=== PATIENT | female | born 1995 | race Caucasian/White ===

== ENCOUNTER 2020-03-10 12:51 | Outpatient (REF) | payer OTHER, SELFPAY | END 2020-03-10 12:52 | disposition home or self-care (01) | LOC: HO.LAB 12:51 | PROVIDERS: Visit Provider Internal Medicine | DX: Z20.828 Contact with and (suspected) exposure to other viral communicable diseases (principal) | CPT/HCPCS: C9803; U0003 ==

== ENCOUNTER 2022-07-25 10:46 | Outpatient (REF) | payer BC, SELFPAY ==
[2022-07-28 08:54] LABS: HPV mRNA E6/E7 rflx Not Detected (Not Detected)
== END 2022-07-25 10:47 | disposition home or self-care (01) ==
LOC: HO.LAB 10:46
PROVIDERS: Visit Provider Internal Medicine
DX: Z01.419 Encounter for gynecological examination (general) (routine) without abnormal findings (principal); Z11.51 Encounter for screening for human papillomavirus (HPV)
CPT/HCPCS: 87624; 88142

== ENCOUNTER 2022-07-25 11:15 | Outpatient (REF) | payer BC, SELFPAY ==
[2022-07-25 14:03] LABS: MANUAL DIFF FLAG NO
[2022-07-25 14:09] LABS: Basophils Absolute Auto 0.1 X10*3/uL (0.0-0.2); Basophils Percent Auto 1.5 % (0-2); Eosinophils Percent Auto 0.5 % (0-4); Hematocrit 37.7 % (37.0-47.0); Hemoglobin 12.6 g/dl (12.0-16.0); Imm Gran Abs Auto 0.02 X10*3/uL (0.00-0.03); Imm Gran Pct Auto 0.3 % (0.0-0.4); Lymphocytes Percent Auto 32.1 % (20-40); Mean Corpuscular HGB Conc 33.4 g/dl (31.0-35.0); Mean Corpuscular Hemoglobin 30.6 pg (27.0-33.0); Mean Corpuscular Volume 91.5 fL (80.0-98.0); Mean Platelet Volume 10.4 fL (9.4-12.3); Monocytes Absolute Auto 0.6 X10*3/uL (0.1-1.2); Neutrophils Absolute Auto 3.5 x10*3/uL (2.0-8.3); Neutrophils Percent Auto 56.6 % (45-73); Platelet Count 273 X10*3/uL (160-400); Red Blood Count 4.12 X10*6/uL (4.20-5.50); Red Cell Distribution Width 13.2 % (11.0-16.0); White Blood Count 6.2 X10*3/uL (4.8-10.8)
[2022-07-25 15:22] LABS: Alanine Aminotransferase 37 U/L (0-31); Aspartate Amino Transferase 18 U/L (5-31); Cholesterol 320 mg/dL; Glucose Fasting 86 mg/dL (60-99); HDL Cholesterol 57 mg/dL; Iron 108 mcg/dL (30-160); LDL Cholesterol Calculated 211 mg/dl; Percent Iron Saturation 36 % (15-50); Total Iron Binding Capacity 299 mcg/dL (228-428); Triglycerides 260 mg/dL; Unsaturated Iron Binding 191 ug/dL
[2022-07-25 15:40] LABS: TSH reflex Free T4 1.81 uIU/mL (0.32-4.0); Vitamin D 25-OH Total 54.6 ng/mL (>30)
== END 2022-07-25 11:16 | disposition home or self-care (01) ==
LOC: HO.HMGCLDS 11:15
PROVIDERS: PCP Internal Medicine; Visit Provider Internal Medicine
DX: Z00.01 Encounter for general adult medical examination with abnormal findings (principal); Z86.2 Personal history of diseases of the blood and blood-forming organs and certain disorders involving the immune mechanism; Z83.49 Family history of other endocrine, nutritional and metabolic diseases
CPT/HCPCS: 36415; 80061; 82306; 82947; 83540; 84443; 84450; 84460; 85025

== ENCOUNTER 2022-11-20 12:09 | Outpatient (REF) | payer BC, SELFPAY ==
[2022-11-20 13:46] LABS: Basophils Absolute Auto 0.1 X10*3/uL (0.0-0.2); Basophils Percent Auto 1.1 % (0-2); Eosinophils Percent Auto 0.6 % (0-4); Hemoglobin 12.1 g/dl (12.0-16.0); Imm Gran Abs Auto 0.01 X10*3/uL (0.00-0.03); Imm Gran Pct Auto 0.2 % (0.0-0.4); Lymphocytes Absolute Auto 2.1 X10*3/uL (1.2-4.9); Lymphocytes Percent Auto 33.6 % (20-40); MANUAL DIFF FLAG NO; Mean Corpuscular HGB Conc 32.7 g/dl (31.0-35.0); Mean Corpuscular Volume 91.8 fL (80.0-98.0); Mean Platelet Volume 10.5 fL (9.4-12.3); Monocytes Absolute Auto 0.5 X10*3/uL (0.1-1.2); Monocytes Percent Auto 8.3 % (2-11); Neutrophils Absolute Auto 3.5 x10*3/uL (2.0-8.3); Neutrophils Percent Auto 56.2 % (45-73); Platelet Count 234 X10*3/uL (160-400); Red Blood Count 4.03 X10*6/uL (4.20-5.50); White Blood Count 6.3 X10*3/uL (4.8-10.8)
[2022-11-21 04:31] LABS: HBS Num1 0.09 mIU/mL (0-7.99); ~Hepatitis B Surface Antibody NONREACTIVE (Nonreactive)
[2022-11-21 10:09] LABS: Rubella IgG Antibody 1.62 Index; Rubeola IgG (Measles) <13.50 AU/mL; Varicella IgG Antibody <135.00 index
[2022-11-22 15:47] LABS: TS Negative Control Passed; TS Panel A 0; TS Panel B 0; TS Positive Control Passed; TSpotTB Negative (Negative)
== END 2022-11-20 12:10 | disposition home or self-care (01) ==
LOC: HO.HMGCLDS 12:09
PROVIDERS: PCP Internal Medicine; Visit Provider Internal Medicine
DX: Z01.84 Encounter for antibody response examination (principal); Z11.1 Encounter for screening for respiratory tuberculosis; E78.2 Mixed hyperlipidemia; Z86.2 Personal history of diseases of the blood and blood-forming organs and certain disorders involving the immune mechanism
CPT/HCPCS: 36415; 85025; 86481; 86706; 86735; 86762; 86765; 86787

== ENCOUNTER 2022-12-04 07:48 | Outpatient (REF) | payer BC, SELFPAY ==
[2022-12-04 14:01] LABS: Cholesterol 210 mg/dL; HDL Cholesterol 49 mg/dL; LDL Cholesterol Calculated 124 mg/dl; Triglycerides 188 mg/dL
== END 2022-12-04 07:49 | disposition home or self-care (01) ==
LOC: HO.HMGCLDS 07:48
PROVIDERS: PCP Internal Medicine; Visit Provider Internal Medicine
DX: E78.2 Mixed hyperlipidemia (principal); Z86.2 Personal history of diseases of the blood and blood-forming organs and certain disorders involving the immune mechanism
CPT/HCPCS: 36415; 80061

== ENCOUNTER 2022-12-06 15:20 | Outpatient (AMB) | payer BC, SELFPAY ==
--- NOTE | 2022-12-06 15:38 | A.OFFPC_ITS ---
<Statement entered by Jyoti Cooper MD - 08/26/24 15:20> This note has been administratively?closed. Vital Signs 12/06/22 15:39 Height 5 ft 6 in Weight 143 lb BMI 23.1 BP 110/68 Blood Pressure Location Lt brachial Position Sitting Pulse 70 Pulse Source Pulse Oximeter Pulse Oximetry (%) 100 Oxygen Delivery Method Room Air Intake Visit Reasons: 4 month follow up Intake Note: Patient here to review lab results. Allergies No Known Allergies Allergy (Unverified 12/06/22 16:01) Medication List - Last Reconciled 12/06/22 by Jyoti Cooper MD cholecalciferol (vitamin D3) 25 mcg PO DAILY ferrous sulfate 325 mg PO DAILY Tobacco use date assessed: 08/01/22 [facility] History Family history of thyroid disease Hx of iron deficiency anemia Hx of renal calculi Mixed dyslipidemia Surgical History History of extraction of renal calculus Family History Mother Hypercholesterolemia Maternal Uncle Hypercholesterolemia Coronary artery disease Social History Housing: House Patient Tobacco Use Status: Never used Tobacco e-Cigarette/Vaping Use: Never Used service: No Current occupational status: employed Cognitive needs: No Hearing needs: No Vision needs: No Questionnaire Thrive Questionnaire Date Thrive assessed: 07/25/22 YAMILEX-7 AMB Questionnaire YAMILEX-7 Date YAMILEX - 7 assessed: 07/25/22 Source: Developed by Drs. Jean Das, Cindy Garcia, Brain Gotti and colleagues, with an educational ricki from [email or web address]. Physical exam (Primary Care) Vital Signs: Last Vital Signs Pulse 70 12/06/22 15:39 BP 110/68 12/06/22 15:39 Pulse Ox 100 12/06/22 15:39 Oxygen Delivery Method Room Air 12/06/22 15:39 BMI result Body Mass Index 23.1 Tobacco/Smoking Status: Tobacco use Status Tobacco use date assessed 08/01/22 12/06/22 15:41 Patient Tobacco Use Status Never used Tobacco 12/06/22 15:41 e-Cigarette/Vaping Use Never Used 12/06/22 15:41 Thrive Assessment: Date of Thrive Assessment Date Thrive assessed 07/25/22 12/06/22 15:41 Results Reviewed Results Reviewed: RUN: 12/06/22 1553 PAGE 1 [facility] [address] [place] [phone] Gardener Florist: Gorge Armenta M.D. Specimen Inquiry Name: Luz Moreno Age/Sex: 27/F : 1995 Unit#: [id number] Attend Dr: Jyoti Cooper MD Re11/20/22 Status: DEP REF Location: [facility] Disch: SPEC : [id number] ERIKA: 11/20/22 STATUS: COMP REQ : [id number] RECD: 11/20/[address]: Jyoti Cooper MD COMP: 11/20/22 ENTERED: 11/20/[address] [facility] [address]: ORDERED: CBC Auto Diff Test Result Flag Reference Site WBC 6.3 4.8-10.8 X10*3/uL RBC 4.03 L 4.20-5.50 X10*6/uL HGB 12.1 12.0-16.0 g/dl HCT 37.0 37.0-47.0 % MCV 91.8 80.0-98.0 fL MCH 30.0 27.0-33.0 pg MCHC 32.7 31.0-35.0 g/dl RDW 13.0 11.0-16.0 % PLT 234 160-400 X10*3/uL Assessment and Plan Assessment & Plan (1) Mixed dyslipidemia: Code(s): E78.2 - Mixed hyperlipidemia (2) Hx of iron deficiency anemia: Code(s): Z86.2 - Personal history of diseases of the blood and blood-forming organs and certain disorders involving the immune mechanism Review Flu Vaccine not done: patient reason (Patient declined) Coding Level of Care Code Est Pt Level 3 (09288) Diagnoses Mixed dyslipidemia E78.2 Hx of iron deficiency anemia Z86.2
[2022-12-06 15:39] VITALS: BP 110/68; PULSE 70; O2SAT 100; BMI 23.1
== END 2022-12-06 16:24 | disposition home or self-care (01) ==
LOC: HO.HMGC 15:20
PROVIDERS: PCP Internal Medicine; Visit Provider Internal Medicine
DX: E78.2 Mixed hyperlipidemia (principal); Z86.2 Personal history of diseases of the blood and blood-forming organs and certain disorders involving the immune mechanism
CPT/HCPCS: 99499

== ENCOUNTER 2024-09-14 21:49 | Emergency (ER) | payer OTHER, SELFPAY ==
--- NOTE | ~2024-09-14 | XR_ITS ---
CLINICAL HISTORY: chest pain 1 view chest x-ray Comparison: None available Findings: No consolidation, pneumothorax, or pleural effusion. Cardiac silhouette is at the upper limits of normal. No acute fracture, by one view chest x-ray. IMPRESSION: No consolidation. This document has been electronically signed by: Zana John MD on 09/14/2024 23:11:25
--- NOTE | ~2024-09-14 | CT_ITS ---
CLINICAL HISTORY: Sudden onset of chest pain and shortness o breath CT angiography chest with contrast. With MIP MPR Postprocessing. Comparison: Chest x-ray from 09/14/2024 Findings: No central pulmonary embolism. No aortic dissection accounting for artifacts. Heart size at the upper limits of normal. No consolidation, pneumothorax, or pleural effusion. Minimal atelectasis with motion artifacts. Mild residual thymic tissue mild mediastinal fluid. Nonenlarged mediastinal lymphadenopathy. No acute osseous abnormality. Mild/borderline splenomegaly in the partially imaged abdomen. IMPRESSION: 1. No central pulmonary embolism. 2. Mild bibasilar atelectasis. This document has been electronically signed by: Zana John MD on 09/15/2024 01:15:18
--- NOTE | 2024-09-14 21:51 | ECG_ITS ---
Test Reason : CHEST PAIN Blood Pressure : */* mmHG Vent. Rate : 70 BPM Atrial Rate : 70 BPM P-R Int : 156 ms QRS Dur : 82 ms QT Int : 396 ms P-R-T Axes : 47 57 12 degrees QTcB Int : 427 ms Normal sinus rhythm Normal ECG No previous ECGs available Referred By: Generic ED Physician Electronically Signed By: Tyler Bloom
[2024-09-14 22:00] VITALS: BP 120/67; PULSE 63; RESP 16; TEMP 36.2; O2SAT 99; BMI 24.2
[2024-09-14 22:17] LABS: MANUAL DIFF FLAG NO
[2024-09-14 22:18] LABS: Basophils Percent Auto 0.4 % (0-2); Eosinophils Absolute Auto 0.1 X10*3/uL (0.0-0.4); Hematocrit 34.8 % (37.0-47.0); Hemoglobin 11.7 g/dl (12.0-16.0); Imm Gran Abs Auto 0.02 X10*3/uL (0.00-0.03); Imm Gran Pct Auto 0.3 % (0.0-0.4); Lymphocytes Absolute Auto 2.1 X10*3/uL (1.2-4.9); Lymphocytes Percent Auto 29.2 % (20-40); Mean Corpuscular HGB Conc 33.6 g/dl (31.0-35.0); Mean Corpuscular Volume 89.2 fL (80.0-98.0); Mean Platelet Volume 9.4 fL (9.4-12.3); Monocytes Absolute Auto 0.8 X10*3/uL (0.1-1.2); Monocytes Percent Auto 10.6 % (2-11); Neutrophils Absolute Auto 4.1 x10*3/uL (2.0-8.3); Neutrophils Percent Auto 58.5 % (45-73); Platelet Count 242 X10*3/uL (160-400); White Blood Count 7.1 X10*3/uL (4.8-10.8)
[2024-09-14 22:33] LABS: Alanine Aminotransferase 52 U/L (0-31); Albumin Level 4.5 g/dL (3.5-5.0); Alkaline Phosphatase 137 U/L (39-117); Anion Gap 13 (12-20); Aspartate Amino Transferase 77 U/L (5-31); Bilirubin Total 1.6 mg/dL (0.0-1.0); Blood Urea Nitrogen 20 mg/dL (9-16); Calcium 9.5 mg/dL (8.4-10.2); Carbon Dioxide 25 mmol/L (22-29); Chloride 109 mmol/L (96-108); Creatinine Clr Calc Pharmacy 129.6; Estimated Glomerular Filt Rate > 60; Glucose Random 82 mg/dL (60-115); Sodium 143 mmol/L (135-145); Total Protein 6.8 g/dL (6.5-8.0)
[2024-09-14 22:41] LABS: Troponin-I High Sensitivity < 2.7 ng/L (<3.5-17.0)
[2024-09-14 22:45] LABS: Prothrombin Time 11.1 SEC (10.9-12.4)
--- NOTE | 2024-09-14 23:56 | ED.CHESTPAIN ---
HPI - Chest Pain General Chief Complaint: Chest Pain Stated Complaint: cp, sob Time Seen by Provider: 09/14/24 23:53 Source: patient Mode of arrival: ambulatory Limitations: no limitations History of Present Illness ED Provider: HPI narrative: Patient 29 years old 8 weeks normal vaginal delivery comes here for left-sided chest tightness and shortness a breath prior to arrival on arrival patient is saturating 98% at room air no palpitation no history of anxiety or depression patient never had similar episode in the past patient denied any in leg pain no family history of coronary artery disease/PE Related Data Allergies Allergy/AdvReac Type Severity Reaction Status Date / Time No Known Allergies Allergy Verified 09/14/24 22:02 Review of Systems Review of Systems: Yes all other systems are reviewed and are negative [facility] Social History Social History Alcohol intake: never Physical Exam Vital Signs: Vital Signs: Last Vital Signs Temp 97.4 F 09/15/24 02:26 Pulse 63 09/15/24 02:26 Resp 16 09/15/24 02:26 BP 111/63 09/15/24 02:26 Pulse Ox 98 09/15/24 02:26 O2 Del Method Room Air 09/15/24 02:26 BMI result Body Mass Index 24.2 Appearance: Alert. Oriented X3. No acute distress. Eyes: No pallor or icterus ENT: Pharynx normal. Oral Mucosa moist Neck: Normal inspection. Neck supple. CVS: Normal heart rate and rhythm. Pulses normal. Respiratory: No respiratory distress. Equal air entry bilateral, no wheezing/rales/rhonchi Abdomen: Soft and nontender. Bowel sounds are present, no mass palpable, no CVA tenderness Skin: Skin warm and dry. Normal skin color. Normal skin turgor. Extremities: No lower extremity edema. No calf tenderness Neuro: Oriented X 3. No motor deficit. Medications Administered Discontinued Medications Generic Name Dose Route Start Last Admin Trade Name Freq PRN Reason Stop Dose Admin Iohexol 65 ml 09/15/24 00:16 09/15/24 00:17 Iohexol 350 Mg/Ml 100 Ml Infus..Btl IV 09/15/24 00:17 65 ml ONCE ONE Administration Medical Decision Making Medical Decision Making [facility] Narrative: Patient has atypical chest pain and shortness a breath CTA chest was done to rule out PE which was negative cardiac enzymes negative heart score of 0 no acute EKG changes will discharge patient home patient is saturating 99% after ambulation no chest pain at this time Differential Diagnosis Differential Diagnoses: The differential diagnosis associated with the presentation includes Musculoskeletal chest pain/PE/pneumonia/pleurisy Admission/Observation Consideration of admission/observation: Escalation of care including admission/observation considered Lab Data MDM Lab Attestation statement: I reviewed the patient's lab results. 09/14/24 22:15 09/14/24 22:15 Labs: Lab Results 09/14/24 Range/Units 22:15 WBC 7.1 (4.8-10.8) X10*3/uL RBC 3.90 L (4.20-5.50) X10*6/uL Hgb 11.7 L (12.0-16.0) g/dl Hct 34.8 L (37.0-47.0) % MCV 89.2 (80.0-98.0) fL MCH 30.0 (27.0-33.0) pg MCHC 33.6 (31.0-35.0) g/dl RDW 13.0 (11.0-16.0) % Plt Count 242 (160-400) X10*3/uL MPV 9.4 (9.4-12.3) fL Immature Gran % (Auto) 0.3 (0.0-0.4) % Neut % (Auto) 58.5 (45-73) % Lymph % (Auto) 29.2 (20-40) % [place] % (Auto) 10.6 (2-11) % Eos % (Auto) 1.0 (0-4) % Baso % (Auto) 0.4 (0-2) % Lymph # (Auto) 2.1 (1.2-4.9) X10*3/uL [place] # (Auto) 0.8 (0.1-1.2) X10*3/uL Eos # (Auto) 0.1 (0.0-0.4) X10*3/uL Baso # (Auto) 0.0 (0.0-0.2) X10*3/uL Abs Immat Gran (auto) 0.02 (0.00-0.03) X10*3/uL Absolute Neuts (auto) 4.1 (2.0-8.3) x10*3/uL Absolute Nucleated RBC 0.000 (0.0-0.012) X10*3/uL Nucleated RBC % (auto) 0.0 (0.0-0.2) /100WBC PT 11.1 (10.9-12.4) SEC INR 1.0 (0.9-1.1) Sodium 143 (135-145) mmol/L Potassium 4.0 (3.3-5.1) mmol/L Chloride 109 H (96-108) mmol/L Carbon Dioxide 25 (22-29) mmol/L Anion Gap 13 (12-20) BUN 20 H (9-16) mg/dL Creatinine 0.61 (0.5-1.4) mg/dL Estim Creat Clear Calc 129.6 Estimated GFR > 60 Random Glucose 82 (60-115) mg/dL Calcium 9.5 (8.4-10.2) mg/dL Total Bilirubin 1.6 H (0.0-1.0) mg/dL AST 77 H (5-31) U/L ALT 52 H (0-31) U/L Alkaline Phosphatase 137 H (39-117) U/L Troponin I High Sens < 2.7 (<3.5-17.0) ng/L Total Protein 6.8 (6.5-8.0) g/dL Albumin 4.5 (3.5-5.0) g/dL Independent Interpretation I performed an independent interpretation of an: EKG Interpretation: Normal sinus rhythm ventricular rate of 70 beats per minute normal intervals normal axis no acute STT wave changes no acute ischemia Scores Heart Score History: -0- slightly suspicious ECG: -0- normal Age: -0- < or = 45 Risk factory: -0- no risk factors known Troponin: -0- < or = normal limit Score: 0 Risk: 1.7% Discharge Plan Discharge Clinical Impression: Atypical chest pain Patient Disposition: Home, Self-Care Instructions: Chest Wall Pain (ED) Additional Instructions: Cause of pain is not clear likely musculoskeletal CT scan of the chest is negative for blood clot Take Tylenol/Motrin for pain if any Follow up with your PCP Interventions: ED Discharge Assessment Last Done: 09/15/24 02:26 Discharge Date/Time: 09/15/24 02:26 Print Language: Azeri
--- NOTE | 2024-09-15 00:14 | PC.NURSE ---
IV #20 L_AC, pt went to CT.
[2024-09-15] MEDS: iohexoL 350 MG/ML 100 ML INFUS..BTL 65 ML IV (00:17)
[2024-09-15 02:00] VITALS: BP 111/63; PULSE 63; RESP 16; TEMP 36.3; O2SAT 98
[2024-09-15 02:26] VITALS: BP 111/63; PULSE 63; RESP 16; TEMP 36.3; O2SAT 98
== END 2024-09-15 02:26 | disposition home or self-care (01) ==
PROVIDERS: Emergency Provider Internal Medicine; PCP Nurse Practitioner Family
DX: R07.89 Other chest pain (principal); R06.02 Shortness of breath
CPT/HCPCS: 36415; 71045; 71275; 80053; 84484; 85025; 85610; 93005; 99284; 99285; Q9967

== ENCOUNTER → 2024-09-14 21:51 | Outpatient (BNV) | payer OTHER, SELFPAY | PROVIDERS: Emergency Provider Internal Medicine; PCP Nurse Practitioner Family; Visit Provider Internal Medicine Cardiovascular Disease | DX: R07.9 Chest pain, unspecified (principal) | CPT/HCPCS: 93010 ==

== ENCOUNTER → 2024-09-14 22:14 | Outpatient (BNV) | payer OTHER, SELFPAY | PROVIDERS: Emergency Provider Internal Medicine; PCP Nurse Practitioner Family; Visit Provider Radiology Neuroradiology | DX: R07.9 Chest pain, unspecified (principal) | CPT/HCPCS: 71045 ==

== ENCOUNTER → 2024-09-15 | Outpatient (BNV) | payer OTHER, SELFPAY | PROVIDERS: Emergency Provider Internal Medicine; PCP Nurse Practitioner Family; Visit Provider Radiology Neuroradiology | DX: R07.9 Chest pain, unspecified (principal); R06.02 Shortness of breath | CPT/HCPCS: 71275 ==

== ENCOUNTER 2024-10-16 10:55 | Outpatient (AMB) | payer OTHER, SELFPAY ==
--- NOTE | 2024-10-16 10:57 | MHC.PC.OV ---
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 screening should start at age 21 years unless your provider advises otherwise. After the first test: Women ages 21 through 29 should have a Pap test every 3 years. Exoprts do not agree on whether HPV testing is recommended for this age group. Women ages 30 through 65 should be screened with either a Pap test every 3 years or the HPV test every 5 years or both tests every 5 years (called cotesting ). Women who have been treated for precancer (cervical dysplasia) should continue to have Pap tests for 20 years after treatment or until age 65, whichever is longer. If you have had your uterus and cervix removed (total hysterectomy), and you have not been diagnosed with cervical cancer or precancer (high grade cervical neoplasia), you do not need cervical cancer screening. CHOLESTEROL SCREENING Cholesterol screening should begin at: Age 45 for women with no known risk factors for coronary heart disease Age 20 for women with known risk factors for coronary heart disease Repeat cholesterol screening should take place: Every 5 years for women with normal cholesterol levels More often if changes occur in lifestyle (including weight gain and diet) More often if you have diabetes, heart disease, kidney problems, or certain other conditions DIABETES SCREENING You should be screened for diabetes starting at age 35 and then repeated every 3 years if you have no risk factors for diabetes. Screening may need to start earlier and be repeated more often if you have other risk factors for diabetes, such as: You have a first degree relative with diabetes. You are overweight or have obesity. You have high blood pressure, prediabetes, or a history of heart disease. Screening for diabetes should be done if you are planning to become and you are overweight and have other risk factors such as high blood pressure. DENTAL EXAM Go to the dentist once or twice every year for an exam and cleaning. Your dentist will evaluate if you need more frequent visits. EYE EXAM Have an eye exam every 5 to 10 years before age 40. If you have vision problems, have an eye exam every 2 years or more often if recommended by your provider. You should have an eye exam that includes an examination of your retina (back of your eye) at least every year if you have diabetes. IMMUNIZATIONS Commonly needed vaccines include: Flu shot: get one every year. COVID-19 vaccine: ask your provider what is best for you. Tetanus-diphtheria and acellular pertussis (Tdap) vaccine: have one at or after age 19 as one of your tetanus-diphtheria vaccines if you did not receive it as an adolescent. Tetanus-diphtheria: have a booster (or Tdap) every 10 years. Varicella vaccine: receive 2 doses if you never had chickenpox or the varicella vaccine. Hepatitis B vaccine: receive 2, 3, or 4 doses, depending on your exact circumstances. Measles, mumps, and rubella (MMR) vaccine: receive 1 to 2 doses if you are not already immune to MMR. Your provider can tell you if you are immune. Ask your provider about the human papillomavirus (HPV) vaccine if: You have not received the HPV vaccine in the past You have not completed the full vaccine series (you should catch up on this shot) Ask your provider if you should receive other immunizations if you have certain health problems that increase your risk for some diseases such as pneumonia. INFECTIOUS DISEASE SCREENING Women who are sexually active should be screened for chlamydia and gonorrhea up until age 25. Women 25 years and older should be screened for chlamydia and gonorrhea if at high risk. Screening for hepatitis C: All adults ages 18 to 79 should get a one-time test for hepatitis C. people should be screened at every . Screening for human immunodeficiency virus (HIV): All people ages 15 to 65 should get a one-time test for HIV. Depending on your lifestyle and medical history, you may also need to be screened for infections such as syphilis and HIV, as well as other infections. PHYSICAL EXAM All adults should visit their provider from time to time, even if they are healthy. The purpose of these visits is to: Screen for disease Assess your risk of future medical problems Encourage a healthy lifestyle Update your vaccinations and other preventive care services Maintain a relationship with a provider in case of an illness Your height, weight, and BMI should be checked at every exam. During your exam, your provider may ask you about: Depression and anxiety Diet and exercise Alcohol and tobacco use Safety issues, such as using seat belts, smoke detectors, and intimate partner violence Your medicines and risk for interactions SKIN SELF-EXAM Your provider may check your skin for signs of skin cancer, especially if you're at high risk, such as if you: Have had skin cancer before Have close relatives with skin cancer Have a weakened immune system OTHER SCREENING Talk with your provider about colon cancer screening if you have a strong family history of colon cancer or polyps, or if you have had inflammatory bowel disease or polyps yourself. Routine bone density screening of women under 40 is not recommended.
[2024-10-16 11:07] VITALS: BP 99/66; PULSE 72; RESP 12; TEMP 36.3; O2SAT 99; BMI 23.8
== END 2024-10-16 11:33 | disposition home or self-care (01) ==
LOC: HO.HMCFM 10:55
PROVIDERS: PCP Nurse Practitioner Family; Visit Provider Nurse Practitioner Family
DX: Z00.00 Encounter for general adult medical examination without abnormal findings (principal); E78.2 Mixed hyperlipidemia; R79.89 Other specified abnormal findings of blood chemistry; Z09 Encounter for follow-up examination after completed treatment for conditions other than malignant neoplasm; Z83.49 Family history of other endocrine, nutritional and metabolic diseases; Z86.2 Personal history of diseases of the blood and blood-forming organs and certain disorders involving the immune mechanism; Z82.49 Family history of ischemic heart disease and other diseases of the circulatory system; Z80.3 Family history of malignant neoplasm of breast; Z01.818 Encounter for other preprocedural examination

== ENCOUNTER → 2024-10-16 10:55 | Outpatient (BNVA) | payer OTHER, SELFPAY | PROVIDERS: PCP Nurse Practitioner Family; Visit Provider Nurse Practitioner Family | DX: Z01.818 Encounter for other preprocedural examination (principal); R79.89 Other specified abnormal findings of blood chemistry; E78.2 Mixed hyperlipidemia; Z83.49 Family history of other endocrine, nutritional and metabolic diseases; Z86.2 Personal history of diseases of the blood and blood-forming organs and certain disorders involving the immune mechanism; Z82.49 Family history of ischemic heart disease and other diseases of the circulatory system; Z80.3 Family history of malignant neoplasm of breast; Z87.442 Personal history of urinary calculi; Z76.89 Persons encountering health services in other specified circumstances | CPT/HCPCS: 96127 ==

== ENCOUNTER 2024-10-30 06:01 | Emergency (ER) | payer OTHER, SELFPAY ==
--- NOTE | ~2024-10-30 | US_ITS ---
EXAMINATION: US ABDOMEN LIMITED CLINICAL INFORMATION: Right upper quadrant abdominal pain. COMPARISON: None available. Correlation made with CT angiogram chest 09/15/[address] abdomen pelvis 07/05/2016. TECHNIQUE: Real-time grayscale and color Doppler imaging of the gallbladder and bile ducts performed. FINDINGS: Limited imaging of the liver demonstrates no abnormality. GALLBLADDER: There are small layering shadowing gallstones present. The gallbladder is normal in appearance otherwise without wall thickening or pericholecystic fluid collection. Negative sonographic Melchor's sign. COMMON BILE DUCT: Normal in caliber measuring 0.5 cm in diameter. FREE FLUID: None. US/US abdomen limited IMPRESSION: 1. Cholelithiasis without ultrasound evidence of acute cholecystitis. 2. No biliary dilatation present. Electronically signed by: Amadou Mayfield MD 10/30/2024 09:17 AM EDT
--- NOTE | ~2024-10-30 | MR_ITS ---
EXAMINATION: MRCP. CLINICAL INFORMATION: Elevated LFTs. Jaundice. TECHNIQUE: Axial and coronal T2 fat-sat haste sequences. Axial and coronal T2 haste sequences. Coronal oblique T2 single shot. MRCP radial T2 fat-sat. 3-D space MRCP triggered. Axial in and out 3-D phase sequences. COMPARISON: Ultrasound and limited dated October 30, 2024. FINDINGS: Patient's motion artifact. Multiple, layering, less than 6 mm hypointense T2 signal lesion seen in the gallbladder lumen. There is a trace of pericholecystic fluid. The gallbladder wall measures 2 mm. The common bile duct measures 3 mm. No gross intraluminal signal abnormality. No intrahepatic biliary ductal dilatation. Liver measures 18 cm. The flow-void signal within the main portal veins and hepatic veins and intrahepatic portion of the IVC are patent. No peripancreatic fluid collections. No main pancreatic ductal dilatation. Spleen measures 9 cm. No nodular lesions in the adrenal glands. No hydronephrosis in either kidney. Subcentimeter cyst in the lower pole right kidney. No ascites. No intestinal obstruction pattern. No aneurysm or gross dissection in the included abdominal aorta. MR/MR MRCP IMPRESSION: Cholelithiasis. Trace of pericholecystic fluid. No gross choledocholithiasis. Hepatomegaly, mild. No ascites. Subcentimeter cyst right kidney. Electronically signed by: Chidi Prado MD 10/30/2024 02:02 PM EDT
[2024-10-30 06:14] VITALS: BP 102/64; PULSE 80; RESP 16; TEMP 36.2; O2SAT 97; BMI 23.4
[2024-10-30 06:52] LABS: MANUAL DIFF FLAG NO
[2024-10-30 06:55] LABS: Hematocrit 35.1 % (37.0-47.0); Hemoglobin 11.9 g/dl (12.0-16.0); Imm Gran Abs Auto 0.04 X10*3/uL (0.00-0.03); Imm Gran Pct Auto 0.6 % (0.0-0.4); Lymphocytes Absolute Auto 1.6 X10*3/uL (1.2-4.9); Mean Corpuscular HGB Conc 33.9 g/dl (31.0-35.0); Mean Corpuscular Hemoglobin 30.2 pg (27.0-33.0); Mean Corpuscular Volume 89.1 fL (80.0-98.0); NRBC Abs Auto 0.000 X10*3/uL (0.0-0.012); NRBC Pct Auto 0.0 /100WBC (0.0-0.2); Platelet Count 223 X10*3/uL (160-400); Red Blood Count 3.94 X10*6/uL (4.20-5.50); White Blood Count 6.4 X10*3/uL (4.8-10.8)
--- NOTE | 2024-10-30 07:04 | ED.ABDPAIN ---
HPI - Abdominal Pain General Chief Complaint: Abdominal Pain Stated Complaint: gall bladder attack Time Seen by Provider: 10/30/24 07:03 Source: patient, family and old records reviewed Mode of arrival: ambulatory Limitations: no limitations History of Present Illness ED Provider: YANET MULLINS narrative: 29 yo female with PMH of renal colic who has been dealing with gallbladder issues on and off and has scheduled elective lap remy with [facility] on Dec 13. She is not on medications or low fat diet. She notes for the past week she has nausea and worsening pain. No fevers, vomiting, diarrhea. She ate steak and corn last night then about 4am pain got severe again. She notes pain is RUQ and epigastric area. MD elicited complaint: abdominal pain Pertinent past history: other Onset (ago): week(s) (1) Pain Consistency: intermittent Location: epigastric and RUQ Severity: severe Quality: stabbing and aching Radiation: none Migration to: no migration Exacerbating factors: eating Relieving factors: nothing Context: other Associated symptoms: nausea Related Data Home Medications ?Medication ?Instructions ?Recorded ?Confirmed vitamins no.119-iron tab PO 10/16/24 10/16/24 fumarate 29 mg-folic acid 1 mg tablet Previous Rx's ?Medication ?Instructions ?Recorded ibuprofen 600 mg tablet 600 mg PO Q6H PRN pain #30 tabs 10/30/24 ondansetron 4 mg disintegrating 4 mg PO Q8H PRN nausea and 10/30/24 tablet vomiting #20 tabs Allergies Allergy/AdvReac Type Severity Reaction Status Date / Time No Known Allergies Allergy Verified 10/30/24 06:15 Review of Systems Review of Systems Constitutional : No Weight loss, No Fever, No Chills ENT/Mouth : No sore throat, No Rhinorrhea Eyes: No Swelling, No Redness Cardiovascular : No Chest Pain, No SOB, NoEdema Respiratory : No Cough, No Sputum, No Wheezing Gastrointestinal : Positive Nausea, no Vomiting, no Diarrhea, positive abdominal Pain, No Hematochezia, No Melena Genitourinary : No Dysuria, No Urinary Frequency, No Hematuria, No Urgency Musculoskeletal : No joint pain, No Myalgias, No Joint Swelling Skin : No Skin Lesions, No rash All other systems reviewed and are negative. [facility] Past Medical History Attestation statement: The following information was validated with the patient. Source: old records reviewed Medical History Kidney stone (~2019) Mixed dyslipidemia Hx of renal calculi Family history of thyroid disease Hx of iron deficiency anemia Surgical History History of extraction of renal calculus Family History Family History (Updated 10/16/24 @ 11:12 by Se Turcios MA) Mother Hypercholesterolemia HTN (hypertension) Maternal Uncle Hypercholesterolemia Coronary artery disease Maternal Grandmother Breast cancer Social History Social History Household Members: Significant Other and Children Housing: House Are you a primary wound care specialist to a significant other at home: Yes Do you presently have visiting nurse or other home services: No Alcohol intake: never Patient Tobacco Use Status: Never used Tobacco e-Cigarette/Vaping Use: Never Used Second Hand Smoke Exposure: No Advance Directives: No Do you have a plan to hurt others: No Plan service: No Current occupational status: employed Current occupation: homehealth aide Cognitive needs: No Hearing needs: No Vision needs: No Physical Exam ED Vital Signs: Vital Signs - 24 hr 10/30/24 06:14 10/30/24 09:27 10/30/24 12:24 Temperature 97.1 F 97.1 F 97.8 F Pulse Rate 80 63 63 Respiratory Rate 16 14 18 Blood Pressure 102/64 94/53 L 92/48 L Pulse Oximetry 97 99 98 Oxygen Delivery Method Room Air Room Air Room Air 10/30/24 14:19 Temperature Pulse Rate 56 Respiratory Rate 18 Blood Pressure 96/60 Pulse Oximetry 99 Oxygen Delivery Method Room Air BMI result Body Mass Index 23.4 Appearance: Alert. Oriented X3. No acute distress. Eyes: Pupils equal, round and reactive to light. ENT: Pharynx normal. Neck: Normal inspection. Neck supple. CVS: Normal heart rate and rhythm. Pulses normal. Respiratory: No respiratory distress. Breath sounds normal. Abdomen: Soft and moderate RUQ and epigastric ttp, no rebound or guarding Skin: Skin warm and dry. Normal skin color. Normal skin turgor. Extremities: No lower extremity edema. No calf ttp Neuro: Oriented X 3. No motor deficit. No sensory deficit. CN2-12 intact Course Course Course Narrative: repeat message to surgery after MRI done 220pm Medical Decision Making Medical Decision Making MDM Narrative: 29 yo female with PMH of renal colic here with recurrent biliary colic last night ate steak and corn worsening pain after 1 week now with nausea and more pain at 4am. At this time labs, US, IVF and IV toradol ordered. She does have elective surgery but not for almost 5 weeks. Differential Diagnosis Differential Diagnoses: The differential diagnosis associated with the presentation includes gastritis, PUD, biliary colic Admission/Observation Consideration of admission/observation: Escalation of care including admission/observation considered labs around baseline, US no RUQ pain and no cholecystitis. plan to DC low fat diet, ibuprofen and follow up early next week for surgery 959am patient was seen by surgical team - plan now obtain MRCP prior to DC MRCP stable follow up as outpatient Consult Healthcare Provider Management of the patient was discussed with: [employer] Jig As[employer]er (Dr. Hernandez) Lab Data [facility] Lab Attestation statement: I reviewed the patient's lab results. 10/30/24 06:44 10/30/24 06:44 Labs: Lab Results 10/30/24 10/30/24 Range/Units 06:44 08:57 WBC 6.4 (4.8-10.8) X10*3/uL RBC 3.94 L (4.20-5.50) X10*6/uL Hgb 11.9 L (12.0-16.0) g/dl Hct 35.1 L (37.0-47.0) % MCV 89.1 (80.0-98.0) fL MCH 30.2 (27.0-33.0) pg MCHC 33.9 (31.0-35.0) g/dl RDW 13.2 (11.0-16.0) % Plt Count 223 (160-400) X10*3/uL MPV 9.7 (9.4-12.3) fL Immature Gran % (Auto) 0.6 H (0.0-0.4) % Neut % (Auto) 60.1 (45-73) % Lymph % (Auto) 24.4 (20-40) % [place] % (Auto) 12.7 H (2-11) % Eos % (Auto) 1.6 (0-4) % Baso % (Auto) 0.6 (0-2) % Lymph # (Auto) 1.6 (1.2-4.9) X10*3/uL [place] # (Auto) 0.8 (0.1-1.2) X10*3/uL Eos # (Auto) 0.1 (0.0-0.4) X10*3/uL Baso # (Auto) 0.0 (0.0-0.2) X10*3/uL Abs Immat Gran (auto) 0.04 H (0.00-0.03) X10*3/uL Absolute Neuts (auto) 3.9 (2.0-8.3) x10*3/uL Absolute Nucleated RBC 0.000 (0.0-0.012) X10*3/uL Nucleated RBC % (auto) 0.0 (0.0-0.2) /100WBC Sodium 139 (135-145) mmol/L Potassium 3.8 (3.3-5.1) mmol/L Chloride 105 (96-108) mmol/L Carbon Dioxide 26 (22-29) mmol/L Anion Gap 12 (12-20) BUN 26 H (9-16) mg/dL Creatinine 0.61 (0.5-1.4) mg/dL Estim Creat Clear Calc 129.6 Estimated GFR > 60 Random Glucose 83 (60-115) mg/dL Calcium 9.5 (8.4-10.2) mg/dL Total Bilirubin 1.3 H (0.0-1.0) mg/dL Direct Bilirubin 0.4 (0.0-0.5) mg/dL AST 107 H (5-31) U/L ALT 75 H (0-31) U/L Alkaline Phosphatase 172 H (39-117) U/L Total Protein 6.8 (6.5-8.0) g/dL Albumin 4.5 (3.5-5.0) g/dL Lipase 50 (8-78) U/L Urine Color Yellow Urine Appearance Clear Urine pH 6.5 (5.0-9.0) Ur Specific [place] 1.020 (1.005-1.025) Urine Protein Negative (Neg-Trace) mg/dL Urine Glucose (UA) Negative (Negative) mg/dL Urine Ketones Negative (Negative) mg/dL Urine Blood Negative (Negative) Urine Nitrite Negative (Negative) Ur Leukocyte Esterase Trace H (Negative) Urine RBC 0-2 (0-2) /HPF Urine WBC 0-5 (0-5) /HPF Ur Squamous Epith Cells 0-2 (0-2) /HPF Urine Bacteria None Seen (None Seen) Hyaline Casts 0-2 (0-2) /LPF Independent Interpretation I performed an independent interpretation of an: Ultrasound Radiology Impression Discussion of test interpretation with radiology: I have reviewed the radiologist's reading. Independent Historian Clinical information obtained from an independent historian. History obtained from or confirmed by: Parent External Record Review External record reviewed: Inpatient record, Outpatient record and Prior outpatient labs Prescription Management I considered prescription management with: Pain Medication and Other Medications Administered Generic Name Dose Route Start Last Admin Trade Name Freq PRN Reason Stop Dose Admin Lactated Ringer's 1,000 mls @ 100 mls/hr 10/30/24 14:30 10/30/24 14:43 Lr IVCONT 100 mls/hr .Q10H RACHEL Administration Discontinued Medications Generic Name Dose Route Start Last Admin Trade Name Freq PRN Reason Stop Dose Admin Sodium Chloride 1,000 mls @ 999 mls/hr 10/30/24 06:30 10/30/24 10:27 Ns IVCONT 10/30/24 07:30 Infused .Q1H1M ONE Infusion Ketorolac Tromethamine 30 mg 10/30/24 06:30 10/30/24 06:37 Ketorolac Tromethamine 30 Mg/Ml Vial IVPUSH 10/30/24 06:31 30 mg ONCE ONE Administration Ondansetron HCl 4 mg 10/30/24 06:30 10/30/24 06:37 Ondansetron Hcl 4 Mg/2 Ml Vial IVPUSH 10/30/24 06:31 4 mg ONCE ONE Administration Discharge Plan Discharge Clinical Impression: Biliary colic Patient Disposition: Home, Self-Care Instructions: Biliary Colic (ED) Additional Instructions: all low fat diet please call and schedule an appointment for early next week return for worsening pain, fevers, vomiting, unable to tolerate eating/drinking or any other concerns Prescriptions: New ibuprofen 600 mg tablet 600 mg PO Q6H PRN (Reason: pain) Qty: 30 0RF ondansetron 4 mg tablet,disintegrating 4 mg PO Q8H PRN (Reason: nausea and vomiting) Qty: 20 0RF No Action PNV 119-iron fum-folic acid 29 mg iron- 1 mg tablet PO Referrals: Marbella Matthews MD [Primary Care Provider, General Surgery] Stand Alone Forms: Work/School Release Print Language: Luxembourgish
[2024-10-30 07:12] LABS: Lipase 50 U/L (8-78)
[2024-10-30 07:16] LABS: Alanine Aminotransferase 75 U/L (0-31); Albumin Level 4.5 g/dL (3.5-5.0); Alkaline Phosphatase 172 U/L (39-117); Anion Gap 12 (12-20); Aspartate Amino Transferase 107 U/L (5-31); Blood Urea Nitrogen 26 mg/dL (9-16); Calcium 9.5 mg/dL (8.4-10.2); Carbon Dioxide 26 mmol/L (22-29); Chloride 105 mmol/L (96-108); Creatinine Clr Calc Pharmacy 129.6; Estimated Glomerular Filt Rate > 60; Potassium 3.8 mmol/L (3.3-5.1); Sodium 139 mmol/L (135-145); Total Protein 6.8 g/dL (6.5-8.0)
[2024-10-30 09:03] LABS: Appearance Urine Clear; Glucose Urine UA Negative (Negative); PH 6.5 (5.0-9.0); Specific Gravity - Urine 1.020 (1.005-1.025); UMIC TRIGGER UACC YES
[2024-10-30 09:27] VITALS: BP 94/53; PULSE 63; RESP 14; TEMP 36.2; O2SAT 99
--- NOTE | 2024-10-30 10:02 | PM.CNGS ---
History of Present Illness Consult details Consult date: 10/30/24 <Fany Pena PA-C - Last Filed: 10/30/24 14:48> Reason for consult: gallstones <DELONTE Brown Last Filed: 10/30/24 14:48> Narrative: 29 year old female with known gallstones, hx of kidney stones who presented to the ED this morning with complaints of acute onset RUQ pain. She reports the pain began early this morning and awoke her out of sleep. It was sharp and severe in nature and she had associated chest pain. She denies nausea, vomiting, fevers, chills, diarrhea, sick contacts. She reports one prior episode of similar pain and was seen here and was worked up for the chest pain. CTA chest was performed and was negative for PE and she was discharged home. She saw her obgyn for her routine post visit and her provider thought she looked jaundiced and obtained LFTs which were elevated at that time. She therefore went to [facility] ED and was found to have gallstones and was seen outpatient by general surgery with plan for lap remy in November. Work up in the ED included CBC, BMP, LFTs which showed no leukocytosis but mildly elevated LFTs. ABD US was performed which demonstrated gallstones without wall thickening or pericholecystic fluid, CBD normal in caliber. She reports feeling better currently and denies any abdominal pain. <DELONTE Brown Last Filed: 10/30/24 14:48> Review of Systems Review of Systems: Yes all other systems are reviewed and are negative <DELONTE Brown Last Filed: 10/30/24 14:48> [facility] Past Medical History Medical History: Medical History Kidney stone (~2019) Mixed dyslipidemia Hx of renal calculi Family history of thyroid disease Hx of iron deficiency anemia <DELONTE Brown Last Filed: 10/30/24 14:48> Family History Family History: Family History (Updated 10/16/24 @ 11:12 by Se Turcios MA) Mother Hypercholesterolemia HTN (hypertension) Maternal Uncle Hypercholesterolemia Coronary artery disease Maternal Grandmother Breast cancer <DELONTE Brown Last Filed: 10/30/24 14:48> Surgical History Surgical History: Surgical History History of extraction of renal calculus <DELONTE Brown Last Filed: 10/30/24 14:48> Social History Social History: Social History Household Members: Significant Other and Children Both parents involved: No Caregiver staying overnight: No Housing: House Are you a primary child care teacher to a significant other at home: Yes Do you presently have visiting nurse or other home services: No 75 years or older and lives alone: No Alcohol intake: never Patient Tobacco Use Status: Never used Tobacco e-Cigarette/Vaping Use: Never Used Second Hand Smoke Exposure: No service: No Current occupational status: employed Current occupation: homehealth aide Cognitive needs: No Hearing needs: No Vision needs: No <DELONTE Brown Last Filed: 10/30/24 14:48> Meds Allergies/Adverse reactions: Allergies Allergy/AdvReac Type Severity Reaction Status Date / Time No Known Allergies Allergy Verified 10/30/24 06:15 <DELONTE Brown Last Filed: 10/30/24 14:48> Home medications: Home Medications ?Medication ?Instructions ?Recorded ?Confirmed ?Last Taken ?Type vitamins no.119-iron tab PO 10/16/24 10/16/24 Unknown History fumarate 29 mg-folic acid 1 mg tablet <DELONTE Brown Last Filed: 10/30/24 14:48> Physical Exam Vital Signs: Vital Signs: Last Vital Signs Temp 97.1 F 10/30/24 09:27 Pulse 63 10/30/24 09:27 Resp 14 10/30/24 09:27 BP 94/53 L 10/30/24 09:27 Pulse Ox 99 10/30/24 09:27 O2 Del Method Room Air 10/30/24 09:27 BMI result Body Mass Index 23.4 <DELONTE Brown Last Filed: 10/30/24 14:48> Const: General: comfortable, no acute distress and alert <MC BrownC Last Filed: 10/30/24 14:48> Orientation/consciousness: patient oriented x3 <Fany Castañedadeau DELONTE Haji Last Filed: 10/30/24 14:48> Eyes: Sclerae: sclerae normal <Fany Castañedadeau DELONTE Hjai Last Filed: 10/30/24 14:48> Resp: Effort & Inspection: normal respiratory effort <Fany Castañedadeau DELONTE Haji Last Filed: 10/30/24 14:48> GI: Inspection: No distended and No scar <Fany Castañedadeau MC Raissa Last Filed: 10/30/24 14:48> Palpation (GI): Soft to palpation, Tenderness to palpation present (GI) in the RUQ (very mildly tender); Melchor's sign negative and no guarding <Fany Castañedadeau DELONTE Haij Last Filed: 10/30/24 14:48> Percussion: Yes normal to percussion <Fany Castañedadeau MC Raissa Last Filed: 10/30/24 14:48> Skin: General skin exam: no rashes or lesions noted and no jaundice <Fany Castañedadeau MC Raissa Last Filed: 10/30/24 14:48> Neuro: General: patient oriented x3 and moves all extremities <Fany Castañedajennifer MC Raissa Last Filed: 10/30/24 14:48> Results Labs Result diagrams: 10/30/24 06:44 10/30/24 06:44 <Fany Molinaslava MC Raissa Last Filed: 10/30/24 14:48> Labs: Abnormal lab results 10/30/24 10/30/24 Range/Units 06:44 08:57 RBC 3.94 L (4.20-5.50) X10*6/uL Hgb 11.9 L (12.0-16.0) g/dl Hct 35.1 L (37.0-47.0) % Immature Gran % (Auto) 0.6 H (0.0-0.4) % [place] % (Auto) 12.7 H (2-11) % Abs Immat Gran (auto) 0.04 H (0.00-0.03) X10*3/uL BUN 26 H (9-16) mg/dL Total Bilirubin 1.3 H (0.0-1.0) mg/dL AST 107 H (5-31) U/L ALT 75 H (0-31) U/L Alkaline Phosphatase 172 H (39-117) U/L Ur Leukocyte Esterase Trace H (Negative) Short CBC 10/30/24 Range/Units 06:44 WBC 6.4 (4.8-10.8) X10*3/uL Hgb 11.9 L (12.0-16.0) g/dl Hct 35.1 L (37.0-47.0) % Plt Count 223 (160-400) X10*3/uL BMP 10/30/24 06:44 Sodium 139 Potassium 3.8 Chloride 105 Carbon Dioxide 26 BUN 26 H Creatinine 0.61 Calcium 9.5 Liver Function 10/30/24 Range/Units 06:44 Total Bilirubin 1.3 H (0.0-1.0) mg/dL Direct Bilirubin 0.4 (0.0-0.5) mg/dL AST 107 H (5-31) U/L ALT 75 H (0-31) U/L Alkaline Phosphatase 172 H (39-117) U/L Albumin 4.5 (3.5-5.0) g/dL Urine 10/30/24 Range/Units 08:57 Urine Color Yellow Urine Appearance Clear Urine pH 6.5 (5.0-9.0) Ur Specific [place] 1.020 (1.005-1.025) Urine Protein Negative (Neg-Trace) mg/dL Urine Glucose (UA) Negative (Negative) mg/dL All other labs normal. <Fany Pena PA-C - Last Filed: 10/30/24 14:48> Imaging Abdominal ultrasound report/results: report reviewed and image reviewed <DELONTE Brown Last Filed: 10/30/24 14:48> Assessment and Plan (1) Elevated LFTs: Status: Acute <DELONTE Brown Last Filed: 10/30/24 14:48> (2) Biliary colic: Status: Acute <DELONTE Brown Last Filed: 10/30/24 14:48> Seen because of an episode of right upper quadrant pain She says she has no she had gallstones Currently nontender Ultrasound shows stones without cholecystitis She wants to be discharged MRCP was done as well because of abnormal LFTs - no CBD stone was seen She wants to be discharged and come back for cholecystectomy as an outpatient She understands the technique of laparoscopic cholecystectomy and open up cholecystectomy. She is aware of the risks including but not limited to bleeding, infections, injury to other organs including bowel, liver, bile ducts, bile leak, retained stones, as well as the benefits and alternatives We will schedule her as an outpatient by next week I have seen and examined independently Her mother was with her during the discussion <Zachary Hernandez MD - Last Filed: 10/30/24 15:54> 29 year old female with known gallstones who presented to the ED this morning with complaints of acute onset RUQ pain with imaging demonstrating gallstones without surrounding inflammatory changes. She feels improved with resolution of her symptoms. However she does have mild elevation of her LFTs and given her history of jaundice the CBD should be cleared prior to surgery. Will therefore obtain MRCP. If negative, she is stable for dc to home on low fat diet with plan for laparoscopic cholecystectomy, possible open on Saturday as an outpatient procedure. Patient and mother comfortable with plan. Update: MRCP negative for CBD stone. Patient feels well without any abdominal pain and feels ready for discharge. Dc to home today on low fat diet with plan for laparoscopic cholecystectomy, possible open on Saturday. Patient comfortable with plan. <Fany Pena PA-C - Last Filed: 10/30/24 14:48> Procedures Date of Service Date of Service: 10/30/24 <Fany Pena PA-C - Last Filed: 10/30/24 14:48> 10/30/24 <Zachary Hernandez MD - Last Filed: 10/30/24 15:54>
[2024-10-30 12:24] VITALS: BP 92/48; PULSE 63; RESP 18; TEMP 36.6; O2SAT 98
--- NOTE | 2024-10-30 13:17 | PC.NURSE ---
Patient gone to MRI.
[2024-10-30 14:19] VITALS: BP 96/60; PULSE 56; RESP 18; O2SAT 99
[2024-10-30] MEDS: Lactated Ringers 1,000 ML 100 ML IVCONT (14:43)
[2024-10-30 15:10] VITALS: BP 96/60; PULSE 56; RESP 18; TEMP 36.6; O2SAT 99
--- NOTE | 2024-10-30 15:10 | PC.NURSE ---
Patient told to come saturday at 10am for surgery.
--- NOTE | 2024-11-24 07:29 | PC.NURSE ---
LR started and received 100cc before discharge.
== END 2024-10-30 15:11 | disposition home or self-care (01) ==
PROVIDERS: Emergency Medicine; Emergency Provider Emergency Medicine; PCP Nurse Practitioner Family
DX: K80.50 Calculus of bile duct without cholangitis or cholecystitis without obstruction (principal); R10.11 Right upper quadrant pain
CPT/HCPCS: 36415; 74181; 76705; 80048; 80076; 81001; 81003; 83690; 85025; 96361; 96374; 96375; 99284; 99285; J1885; J2405; J7120

== ENCOUNTER → 2024-10-30 06:26 | Outpatient (BNV) | payer OTHER, SELFPAY | PROVIDERS: Emergency Provider Emergency Medicine; PCP Nurse Practitioner Family; Visit Provider Physician Assistant Surgical | DX: R79.89 Other specified abnormal findings of blood chemistry (principal); K80.50 Calculus of bile duct without cholangitis or cholecystitis without obstruction | CPT/HCPCS: 99284 ==

== ENCOUNTER → 2024-10-30 06:30 | Outpatient (BNV) | payer OTHER, SELFPAY | PROVIDERS: Emergency Provider Emergency Medicine; PCP Surgery; Visit Provider Radiology Diagnostic Radiology | DX: R17 Unspecified jaundice (principal); R74.01 Elevation of levels of liver transaminase levels; R10.11 Right upper quadrant pain | CPT/HCPCS: 74181; 76705 ==

== ENCOUNTER 2024-11-02 09:19 | Day surgery (SDC) | payer OTHER, SELFPAY ==
[2024-11-02] VITALS (11 sets, daily range): BP systolic 103–116; BP diastolic 62–71; PULSE 55–82; RESP 14–20; TEMP 36.1–36.6; O2SAT 95–100; BMI 23.2
[2024-11-02] MEDS: Lactated Ringers 1,000 ML 50 ML IVCONT (10:03)
[2024-11-02 10:04] LABS: UPreg QC Valid YES
--- NOTE | 2024-11-02 10:08 | P.CONAN_ITS ---
[facility] Active Problems Active Problems: All Active Problems Family history of breast cancer (Acute) Family history of coronary artery disease (Acute) Encounter for visit (Acute) Elevated LFTs (Acute) Mixed dyslipidemia (Acute) Family history of thyroid disease (Acute) Hx of iron deficiency anemia (Acute) Past Medical History Medical History Kidney stone (~2019) Mixed dyslipidemia Hx of renal calculi Family history of thyroid disease Hx of iron deficiency anemia Family History Family History (Updated 10/16/24 @ 11:12 by Se Turcios MA) Mother Hypercholesterolemia HTN (hypertension) Maternal Uncle Hypercholesterolemia Coronary artery disease Maternal Grandmother Breast cancer Family history of problems with anesthesia: No Surgical History Surgical History History of extraction of renal calculus History of Problems with Anesthesia: No Social History Social History Household Members: Significant Other and Children Housing: House 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 If so, by whom?: No Are you DNR?: No Advance Directives: No Advance Directives Information Provided: No Advance Directives on File: No Patient : No service: No Current occupational status: employed Current occupation: homehealth aide Cognitive needs: No Hearing needs: No Vision needs: No Meds Allergies Allergy/AdvReac Type Severity Reaction Status Date / Time No Known Allergies Allergy Verified 11/02/24 10:05 Active Medications: Current Medications Lactated Ringer's (Lr) 1,000 mls @ 50 mls/hr IVCONT .Q20H RACHEL Last Admin: 11/02/24 10:03 Dose: 50 mls/hr Home Medications ?Medication ?Instructions ?Recorded ?Confirmed ?Last Taken ?Type vitamins no.119-iron tab PO 10/16/24 10/16/24 Unknown History fumarate 29 mg-folic acid 1 mg tablet Exam Height,Weight and Vital Signs: Height 5 ft 6 in Weight 65.2 kg Last Vital Signs Temp 97.5 F 11/02/24 09:49 Pulse 82 11/02/24 09:49 Resp 20 11/02/24 09:49 BP 109/71 11/02/24 09:49 Pulse Ox 98 11/02/24 09:49 O2 Del Method Room Air 11/02/24 09:49 Pertinent Lab Results Pertinent Lab Results: Laboratory Tests 11/02/24 09:50 Urine Test NEGATIVE Airway Mallampati Class: I TM Dist: >3cm Neck ROM: Full Assessment and Plan Assessment Anesthesia Assessment: Anesthesia Plan Discussed and Chart Reviewed Final Anesthetic Review Family History of Problems with Anesthesia: No History of Problems with Anesthesia: No NPO: Yes ASA Class: I Final Preanesthetic Review: No Changes in Pt Med Stat, Meds/Allgs Chart Reviewed, Consent Obtained/Reviewed and Anes Risks/Benef Reviewed Patient Risk: Low Procedure Risk: Intermediate Anesthetic Plan Anesthetic Plan: GA Disposition: Standard PACU
--- NOTE | 2024-11-02 10:12 | MHC.SHP ---
Pre-Procedural Eval Section A - 24 Hr Update-Section A only Date of Service: 11/02/24 The patient is an INPATIENT: No Changes since office visit: No Cold of Flu in the past 2 weeks, No New Medical Problems, No Changes in Medication and No Patient answered all questions The patient has been examined within 24 hours of the surgical procedure. The History & Physical has been completed within 30 days and I have reviewed it.: Yes Section B - Complete if H&P > 30 days Chief Complaint: Calculus of bile duct without cholangitis or remy Allergies: Allergies Allergy/AdvReac Type Severity Reaction Status Date / Time No Known Allergies Allergy Verified 11/02/24 10:05 Plan I have reviewed the history and physical and performed a pertinent physical examination on my patient. No changes have occurred unless specified. Time Spent With Patient Time: Total time managing care of this patient today ____ minutes.
[2024-11-02] MEDS: cefoTEtan disodium 2 GM VIAL IV (11:00)
--- NOTE | 2024-11-02 11:34 | W.PM.OPN ---
Operative Note Operative Note Date of Service: 11/02/24 Narrative: Preop diagnosis: Symptomatic gallstones Postop diagnosis: The same Procedure: Laparoscopic cholecystectomy Surgeon: Zachary Hernandez MD assistant press operator offset: JEANETTE Pena The patient is a 29 year old female with gallstones and recurrent right upper quadrant pain. She therefore is here for laparoscopic cholecystectomy she understood the technique of the planned procedure as well as the risks, benefits, and alternatives. She was brought to the operating room. She was placed supine under general anesthesia via endotracheal tube. The abdomen was prepped and draped in the usual sterile fashion. A surgical time-out was done. The patient received Cefotan 2 g IV preoperatively. I made a short supraumbilical incision with a blade 15. This was carried down through the full-thickness of the skin and thick subcutaneous fat down to the fascia. The fascia was incised. The peritoneum was entered. Through this incision a Lopez port was introduced. Pneumoperitoneum was introduced to a pressure of 15 mm Hg. From here on the rest of the procedure was done under vision with the 10 mm 0 degree scope. With laparoscopic visualization and inserted a 12 mm port in the epigastric area below the subcostal margin. Two 5 mm ports introduced a small incision below the subcostal margin along the anterior axillary line and the midclavicular line. Graspers were placed through these working ports. The patient is placed in a head up and [id number] position The fundus of the gallbladder was seen. This was soft and non inflamed. We are able to apply a grasper towards the fundus and this was used to retract the gallbladder cephalad. I was able to apply another grasper towards the pouch of the gallbladder and this was used to retract the gallbladder laterally. At this point therefore the gallbladder was being retracted in cephalad and lateral fashion to put the area of the cystic duct on stretch. markedly distended very erythematous definitely inflamed. We continued to use the [place] dissector to strip off the peritoneum from the neck of the gallbladder carefully. By doing so I was able to clearly identify the cystic duct. I was able to confirm its confluence of the neck of the gallbladder. I was able to also see the cystic artery running alongside this. At this point we were able to achieve a critical view of the hepatocystic triangle. We therefore applied clips on the cystic duct with 2 clips being applied distally. The cystic duct was transected between clips with Endo scissors. We gently dissected the artery some more. We then applied clips with 2 clips being applied distally. The cystic artery was transected between clips endo-scissors. With a retraction of the gallbladder away from the liver bed, I proceeded to then gently divide the hilum with the electrocautery spatula. We incised the peritoneum of the gallbladder he had interface with the liver bed with electrocautery. We are able to dissect a well-defined plane of dissection between the gallbladder with the liver bed using combination of the blunt dissection with the tip of the spatula and electrocautery itself. We proceeded with dissection all the way to the fundus until the entire gallbladder was completely . The gallbladder was retrieved through an endobag through the umbilical incision. I reinserted all ports and re-insufflated. I examined all 4 quadrants. There was no other pathology. There was no evidence of any bowel injury or any bile leak . Once we confirmed good hemostasis, I desufflated through the port sites. I removed all ports under vision with the laparoscope. The umbilical port was removed last. The fascia of the umbilical incision was closed with a [id number] Polysorb 0 stitch. Skin closure was achieved on all incisions with Polysorb 4-0 subcuticular running sutures. All incisions were infiltrated with Marcaine 0.5% for postop analgesia. Steri-Strips and dressings were applied. The patient tolerated the procedure well. There were no immediate complications. Initial and final counts of sponges and instruments were correct. Estimated blood loss was about 10 cc. The patient was extubated without difficulty and transferred to the recovery room with stable vital signs.
[2024-11-02] MEDS: oxyCODONE HCl Immed Release 5 MG TABLET PO (12:06)
== END 2024-11-02 14:30 | disposition home or self-care (01) ==
PROVIDERS: Anesthesiology; PCP Nurse Practitioner Family; Visit Provider Surgery
PROC: 0FT44ZZ Resection of Gallbladder, Percutaneous Endoscopic Approach (ICD-10-PCS; CPT 47562; principal; 2024-11-02 10:30)
DX: K80.10 Calculus of gallbladder with chronic cholecystitis without obstruction (principal); R79.89 Other specified abnormal findings of blood chemistry; E78.2 Mixed hyperlipidemia; Z98.890 Other specified postprocedural states; Z87.442 Personal history of urinary calculi; Z90.49 Acquired absence of other specified parts of digestive tract
CPT/HCPCS: 47562; 81025; 88304; J0131; J0690; J1100; J1790; J2003; J2250; J2405; J2704; J2795; J3010

== ENCOUNTER → 2024-11-02 09:19 | Outpatient (BNV) | payer OTHER, SELFPAY | PROVIDERS: PCP Nurse Practitioner Family; Visit Provider Surgery | DX: K80.10 Calculus of gallbladder with chronic cholecystitis without obstruction (principal) | CPT/HCPCS: 47562 ==

== ENCOUNTER 2024-11-11 13:34 | Outpatient (AMB) | payer OTHER, SELFPAY ==
--- NOTE | 2024-11-11 13:36 | A.OFFVIS_ITS ---
Vital Signs 11/11/24 13:40 Weight 147 lb BP 127/63 Blood Pressure Location Rt brachial Position Sitting Pulse 88 Intake Visit Reasons: s/p lap remy Intake Note: Patient here s/p Laparoscopic cholecystectomy. Patient c/o: no concerns. Reports incision healing well. No longer taking rx pain meds. Surgery: 11-02-2024 Physician Ophthalmologist Required: No Accompanied by: Self / Same As Patient Allergies No Known Allergies Allergy (Verified 11/11/24 13:36) HPI HPI s/p lap remy: Details: She had undergone laparoscopic cholecystectomy for symptomatic gallstones last November 02, 2024. She tolerated procedure well and she went home that same day She says she is doing well currently. She has good oral intake and denies significant complaints. COUNTS INCLUDE 234 BEDS AT THE [facility] Medical History (Updated 11/11/24 @ 14:41 by Zachary Hernandez MD) Gallstones Kidney stone (~2018) Mixed dyslipidemia Hx of renal calculi Family history of thyroid disease Hx of iron deficiency anemia Surgical History Hx laparoscopic cholecystectomy (11/02/24) History of extraction of renal calculus Family History Mother Hypercholesterolemia HTN (hypertension) Maternal Uncle Hypercholesterolemia Coronary artery disease Maternal Grandmother Breast cancer Social History Household Members: Significant Other and Children Both parents involved: No Caregiver staying overnight: No Housing: House Are you a primary childcare attendant to a significant other at home: Yes Do you presently have visiting nurse or other home services: No 75 years or older and lives alone: No Alcohol intake: never Patient Tobacco Use Status: Never used Tobacco e-Cigarette/Vaping Use: Never Used Second Hand Smoke Exposure: No service: No Current occupational status: employed Current occupation: homehealth aide Cognitive needs: No Hearing needs: No Vision needs: No Review of Systems Const Denies chills and Denies fever(s) Card Denies chest pain, Denies dyspnea and Denies dyspnea on exertion Resp Denies cough, Denies dyspnea and Denies dyspnea on exertion GI Denies hematochezia and Denies change in bowel habits Denies hematuria Musc Denies back pain and Denies limited range of motion Neuro Denies focal weakness and Denies convulsions Psych Denies depression and Denies mood swings Physical Exam Vital Signs: Last Vital Signs Pulse 88 11/11/24 13:40 BP 127/63 11/11/24 13:40 Const General: comfortable and no acute distress Eyes Other: Anicteric sclerae GI Other: All incisions are well healed Palpation (GI): Soft to palpation, not firm, nontender and no guarding Assessment & Plan Assessment & Plan (1) Gallstones: Code(s): K80.20 - Calculus of gallbladder without cholecystitis without obstruction Category: Medical Plan: Status post laparoscopic cholecystectomy. She is doing very well postoperatively. All incisions are well healed. She has good oral intake and denies significant complaints. I advised her to avoid lifting anything more than 20 lb for at least 2 more weeks. She can otherwise follow up on a p.r.n. basis. Coding Level of Care Code Global (67685) Diagnoses Gallstones K80.20
[2024-11-11 13:40] VITALS: BP 127/63; PULSE 88
== END 2024-11-11 13:56 | disposition home or self-care (01) ==
LOC: HO.HGS 13:35
PROVIDERS: PCP Nurse Practitioner Family; Visit Provider Surgery
DX: K80.20 Calculus of gallbladder without cholecystitis without obstruction (principal)
CPT/HCPCS: 99024